=== PATIENT | male | born 1955 | race Caucasian/White ===

== ENCOUNTER 2019-04-15 16:18 | Inpatient (IN) | payer BC ==
[2019-04-15 16:36] LABS: ADD MAN DIFF? NO
[2019-04-15 16:49] LABS: WHITE BLOOD COUNT 4.1 10^3/ul (4.8-10.8)
[2019-04-15 16:49] LABS: EOSINOPHILS # 0.1 10^3/ul (0.0-0.5); HEMATOCRIT 28.2 % (42.0-52.0); HEMOGLOBIN 9.5 g/dl (14.0-18.0); LYMPHOCYTES # 0.8 10^3/ul (0.8-2.9); LYMPHOCYTES % 18.3 % (15.0-51.0); MEAN CORPUSCULAR HEMOGLOBIN 33.2 pg (29.0-33.0); MEAN CORPUSCULAR HGB CONC 33.7 g/dl (32.0-37.0); MEAN CORPUSCULAR VOLUME 98.6 fl (82.0-101.0); MEAN PLATELET VOLUME 8.6 fl (7.4-10.4); MONOCYTE # 0.4 10^3/ul (0.3-0.9); MONOCYTES % 10.7 % (0.0-11.0); NEUTROPHIL # 2.8 10^3/ul (1.6-7.5); PLATELET COUNT 203 10^3/UL (140-415); RED BLOOD COUNT 2.86 10^6/ul (4.70-6.10)
[2019-04-15 16:58] LABS: ALANINE AMINOTRANSFERASE 42 IU/L (13-69); ALBUMIN 4.3 g/dl (3.3-4.9); ALBUMIN/GLOBULIN RATIO 1.53; ALKALINE PHOSPHATASE 54 IU/L (42-121); ANION GAP 15 (5-13); ASPARTATE AMINO TRANSFERASE 91 IU/L (15-46); BILIRUBIN,INDIRECT 0.4 mg/dl (0-1.1); BILIRUBIN,TOTAL 0.4 mg/dl (0.2-1.3); BLOOD UREA NITROGEN 16 mg/dl (7-20); CALCIUM 9.5 mg/dl (8.4-10.2); CARBON DIOXIDE 27 mmol/L (21-31); CHLORIDE 88 mmol/L (97-110); CREATININE 1.71 mg/dl (0.61-1.24); Estimated GFR 41 mL/min (>60); GLUCOSE 168 mg/dl (70-220); LIPASE 132 U/L (23-300); POTASSIUM 3.6 mmol/L (3.5-5.1); SODIUM 130 mmol/L (135-144); TOTAL PROTEIN 7.1 g/dl (6.1-8.1)
[2019-04-15 17:09] LABS: TROPONIN-I < 0.012 ng/ml (0.000-0.120)
[2019-04-15] MEDS: SOD CHLORIDE 0.9% 1,000 ML IV (17:11)
[2019-04-15] MEDS: ASPIRIN 81 MG TAB PO (17:11)
[2019-04-15] MEDS: SOD CHLORIDE 0.45% 1,000 ML IV ×2 (18:27→21:45)
[2019-04-15] MEDS ORDERED: GLUCOSE GEL 15 GRAM TUBE PO ×2 (18:30)
[2019-04-15] MEDS ORDERED: ALBUTEROL/IPRATROPIUM (NEB) 3 ML AMP HHN (18:30)
[2019-04-15] MEDS ORDERED: DOCUSATE SODIUM 100 MG CAP PO (18:30)
[2019-04-15] MEDS ORDERED: GLUCAGON 1 MG INJ IM (18:30)
[2019-04-15] MEDS ORDERED: morphine 2 MG INJ IV ×2 (18:30→22:30)
[2019-04-15] MEDS ORDERED: HYDROCODONE/APAP (5/325) TAB PO (18:30)
[2019-04-15] MEDS ORDERED: DEXTROSE 50% 50 ML SYRINGE IV ×2 (18:30)
[2019-04-15] MEDS ORDERED: ACETAMINOPHEN 325 MG TAB PO (18:30)
[2019-04-15] MEDS ORDERED: NON-FORMULARY/PATIENT OWN MED (Cyanocobalamin (Vitamin B-12) (Vitamin B-12) 1,000 MCG) PO (18:30)
[2019-04-15] MEDS ORDERED: ONDANSETRON 4 MG INJ IV (18:30)
[2019-04-15] MEDS ORDERED: GLUCOSE GEL 15 GRAM TUBE BUCCAL (18:30)
[2019-04-15] MEDS ORDERED: NACL 0.9% 3 ML SYG IV (18:30)
[2019-04-15] MEDS ORDERED: MAGNESIUM HYDROXIDE 30ML CUP PO (18:30)
[2019-04-15] MEDS ORDERED: NITROGLYCERIN (SL) 0.4 MG TAB SL (18:30)
[2019-04-15] MEDS ORDERED: hydrALAzine 20 MG INJ IV (18:30)
[2019-04-15 19:28] LABS: CREATINE KINASE 95 IU/L (23-200)
[2019-04-15 19:31] LABS: ADD UMIC YES; UR ASCORBIC ACID 20 mg/dL (NEGATIVE); UR BILIRUBIN (Dip) NEGATIVE (NEGATIVE); UR BLOOD (Dip) 2+ mg/dL (NEGATIVE); UR CLARITY CLOUDY (CLEAR); UR COLOR AMBER (YELLOW); UR GLUCOSE (Dip) 1+ mg/dL (NEGATIVE); UR KETONES (Dip) 1+ mg/dL (NEGATIVE); UR LEUKOCYTE ESTERASE (Dip) 1+ Leu/ul (NEGATIVE); UR MUCUS MODERATE /HPF (NONE SEEN); UR NITRITE (Dip) NEGATIVE (NEGATIVE); UR RBC 147 /HPF (0-5); UR SPECIFIC GRAVITY (Dip) 1.024 (1.003-1.030); UR TOTAL PROTEIN (Dip) 1+ mg/dl (NEGATIVE); UR UROBILINOGEN (Dip) 1+ mg/dL (NEGATIVE); UR WBC 57 /HPF (0-5)
[2019-04-15 19:41] LABS: CK INDEX 1.7; CK-MB 1.64 ng/ml (0.0-2.4); TROPONIN-I < 0.012 ng/ml (0.000-0.120)
[2019-04-15 19:44] LABS: FREE T4 (FREE THYROXINE) 1.07 ng/dl (0.78-2.44)
[2019-04-15 19:56] LABS: ETHANOL < 10.0 mg/dl (0-0)
[2019-04-15] MEDS: LORAZEPAM 2 MG INJ IV (20:03)
[2019-04-15] MEDS: INSULIN ASPART [NOVOLOG] 3 ML PEN SC (21:00)
[2019-04-15] MEDS ORDERED: SIMVASTATIN 5 MG PO (21:00)
[2019-04-15] MEDS: TAMSULOSIN (SR) 0.4 MG CAP PO (21:42)
[2019-04-15] MEDS: ATORVASTATIN 10 MG TAB PO (21:42)
[2019-04-16] MEDS: INSULIN ASPART [NOVOLOG] 3 ML PEN SC ×6 (01:00→21:00)
[2019-04-16 01:06] LABS: CREATINE KINASE 78 IU/L (23-200)
[2019-04-16] MEDS: ACCU-CHEK XX (01:09)
[2019-04-16 01:20] LABS: CK INDEX 1.5; TROPONIN-I < 0.012 ng/ml (0.000-0.120)
[2019-04-16 02:40] LABS: ADD UMIC YES; UR ASCORBIC ACID NEGATIVE (NEGATIVE); UR BILIRUBIN (Dip) NEGATIVE (NEGATIVE); UR BLOOD (Dip) 3+ mg/dL (NEGATIVE); UR CLARITY SLIGHTLY CLOUDY (CLEAR); UR COLOR YELLOW (YELLOW); UR GLUCOSE (Dip) 1+ mg/dL (NEGATIVE); UR KETONES (Dip) TRACE mg/dL (NEGATIVE); UR LEUKOCYTE ESTERASE (Dip) NEGATIVE Leu/ul (NEGATIVE); UR MUCUS FEW /HPF (NONE SEEN); UR NITRITE (Dip) NEGATIVE (NEGATIVE); UR RBC 53 /HPF (0-5); UR SPECIFIC GRAVITY (Dip) 1.012 (1.003-1.030); UR TOTAL PROTEIN (Dip) NEGATIVE (NEGATIVE); UR UROBILINOGEN (Dip) NEGATIVE (NEGATIVE); UR WBC 5 /HPF (0-5)
[2019-04-16] MEDS: PANTOPRAZOLE (EC) 40 MG TAB PO (05:26)
[2019-04-16 06:19] LABS: ADD MAN DIFF? NO
[2019-04-16 06:35] LABS: WHITE BLOOD COUNT 2.7 10^3/ul (4.8-10.8)
[2019-04-16 06:35] LABS: BASOPHILS % 1.5 % (0.0-2.0); EOSINOPHILS # 0.2 10^3/ul (0.0-0.5); EOSINOPHILS % 7.9 % (0.0-7.0); HEMATOCRIT 23.8 % (42.0-52.0); LYMPHOCYTES # 0.6 10^3/ul (0.8-2.9); LYMPHOCYTES % 22.6 % (15.0-51.0); MEAN CORPUSCULAR HEMOGLOBIN 32.8 pg (29.0-33.0); MEAN CORPUSCULAR HGB CONC 33.6 g/dl (32.0-37.0); MEAN CORPUSCULAR VOLUME 97.5 fl (82.0-101.0); MEAN PLATELET VOLUME 8.6 fl (7.4-10.4); MONOCYTE # 0.4 10^3/ul (0.3-0.9); MONOCYTES % 14.3 % (0.0-11.0); NEUTROPHIL # 1.4 10^3/ul (1.6-7.5); NEUTROPHILS % 52.9 % (39.0-77.0); PLATELET COUNT 163 10^3/UL (140-415); RED BLOOD COUNT 2.44 10^6/ul (4.70-6.10); RED CELL DISTRIBUTION WIDTH 12.9 % (11.5-14.5)
[2019-04-16 06:42] LABS: HEMOGLOBIN A1C 5.6 % (0-5.9)
[2019-04-16 06:56] LABS: CHOLESTEROL 114 mg/dl (100-200)
[2019-04-16 06:56] LABS: CHOL/HDL RATIO 1.6 RATIO; HDL CHOLESTEROL 70 mg/dl (30-78); LDL CHOLESTEROL,CALCULATED 29 mg/dl; TRIGLYCERIDES 74 mg/dl (0-149)
[2019-04-16 07:00] LABS: ANION GAP 7 (5-13); BLOOD UREA NITROGEN 14 mg/dl (7-20); CALCIUM 8.6 mg/dl (8.4-10.2); CARBON DIOXIDE 30 mmol/L (21-31); CHLORIDE 93 mmol/L (97-110); Estimated GFR > 60 mL/min (>60); GLUCOSE 114 mg/dl (70-220); PHOSPHORUS 2.6 mg/dl (2.5-4.9); POTASSIUM 3.5 mmol/L (3.5-5.1); SODIUM 130 mmol/L (135-144)
[2019-04-16 08:29] LABS: MAGNESIUM 0.8 mg/dl (1.7-2.5)
[2019-04-16] MEDS ORDERED: [UNRECOGNIZED DRUG - OTHER] PO (09:00)
[2019-04-16] MEDS ORDERED: CLOPIDOGREL 75 MG TAB PO (09:00)
[2019-04-16] MEDS ORDERED: FOLIC ACID PO (09:00)
[2019-04-16] MEDS ORDERED: MV FE OTHER MIN PO (09:00)
[2019-04-16] MEDS: FERROUS SULFATE (EC) 325 MG TAB PO (09:02)
[2019-04-16] MEDS: FINASTERIDE 5 MG TAB PO (09:02)
[2019-04-16] MEDS: MULTIVITAMINS/MINERALS TAB PO (09:02)
[2019-04-16] MEDS: MAGNESIUM SULFATE 4 GM/100 ML 100 ML IVPB (10:10)
[2019-04-16] MEDS: LORAZEPAM 2 MG INJ IV ×2 (11:34→16:49)
[2019-04-16 11:55] LABS: IRON 64 ug/dl (35-150)
[2019-04-16 12:05] LABS: % IRON SATURATION 26 % SAT (22-52); TOTAL IRON BINDING CAPACITY 250 ug/dl (241-421)
[2019-04-16 14:01] LABS: PARATHYROID HORMONE 20.8 pg/ml (24.0-73.0)
[2019-04-16 14:39] LABS: SODIUM,URINE RANDOM 66 mmol/L (30-90)
[2019-04-16 14:42] LABS: CREATININE,URINE RANDOM 35.02 mg/dl (20-370); PROTEIN/CREAT RATIO 0.42 RATIO
[2019-04-16] MEDS: SOD CHLORIDE 0.45% 1,000 ML IV (15:31)
[2019-04-16 15:53] LABS: OSMOLALITY 275 mOsm/kg (280-295)
[2019-04-16 16:15] LABS: OSMOLALITY,URINE 249 mOsm/kg (250-1200)
[2019-04-16] MEDS: ATORVASTATIN 10 MG TAB PO (21:04)
[2019-04-17] MEDS: ACCU-CHEK XX (02:00)
[2019-04-17 06:18] LABS: PROTEIN, TOTAL 5.7 g/dL (6.1-8.1)
[2019-04-17 06:43] LABS: ADD MAN DIFF? NO
[2019-04-17] MEDS: PANTOPRAZOLE (EC) 40 MG TAB PO (06:45)
[2019-04-17 06:55] LABS: BASOPHIL # 0.1 10^3/ul (0.0-0.1); BASOPHILS % 1.5 % (0.0-2.0); EOSINOPHILS # 0.2 10^3/ul (0.0-0.5); EOSINOPHILS % 6.2 % (0.0-7.0); HEMATOCRIT 29.6 % (42.0-52.0); HEMOGLOBIN 9.7 g/dl (14.0-18.0); LYMPHOCYTES # 0.8 10^3/ul (0.8-2.9); LYMPHOCYTES % 23.2 % (15.0-51.0); MEAN CORPUSCULAR HEMOGLOBIN 32.9 pg (29.0-33.0); MEAN CORPUSCULAR HGB CONC 32.8 g/dl (32.0-37.0); MEAN CORPUSCULAR VOLUME 100.3 fl (82.0-101.0); MEAN PLATELET VOLUME 8.6 fl (7.4-10.4); MONOCYTE # 0.4 10^3/ul (0.3-0.9); MONOCYTES % 10.9 % (0.0-11.0); NEUTROPHILS % 57.6 % (39.0-77.0); PLATELET COUNT 189 10^3/UL (140-415); RED BLOOD COUNT 2.95 10^6/ul (4.70-6.10); RED CELL DISTRIBUTION WIDTH 13.2 % (11.5-14.5)
[2019-04-17 06:55] LABS: WHITE BLOOD COUNT 3.4 10^3/ul (4.8-10.8)
[2019-04-17 07:10] LABS: ANION GAP 10 (5-13); BLOOD UREA NITROGEN 8 mg/dl (7-20); CALCIUM 9.2 mg/dl (8.4-10.2); CARBON DIOXIDE 32 mmol/L (21-31); CHLORIDE 94 mmol/L (97-110); CREATININE 1.07 mg/dl (0.61-1.24); Estimated GFR > 60 mL/min (>60); GLUCOSE 129 mg/dl (70-220); POTASSIUM 3.8 mmol/L (3.5-5.1); SODIUM 136 mmol/L (135-144)
[2019-04-17 07:16] LABS: C-REACTIVE PROTEIN 1.5 mg/dl (0.0-0.9)
[2019-04-17] MEDS: FERROUS SULFATE (EC) 325 MG TAB PO (08:26)
[2019-04-17] MEDS: MULTIVITAMINS/MINERALS TAB PO (08:26)
[2019-04-17] MEDS: FINASTERIDE 5 MG TAB PO (08:26)
[2019-04-17] MEDS: CYANOCOBALAMIN 500 MCG TAB PO (08:40)
[2019-04-17 08:42] LABS: FOLATE > 20.0 ng/ml (2.8-20.0)
[2019-04-17] MEDS: INSULIN ASPART [NOVOLOG] 3 ML PEN SC ×2 (08:48→12:42)
[2019-04-17 08:53] LABS: ERYTHROCYTE SEDIMENTATION RATE 55 mm/Hr (0-20)
[2019-04-17] MEDS: CEFTRIAXONE 1 GM/50 ML (PMX) 50 ML IVPB (12:29)
[2019-04-17 15:02] LABS: OCCULT BLOOD STOOL NEGATIVE (NEGATIVE)
[2019-04-17 23:48] LABS: ALBUMIN 3.3 g/dL (3.8-4.8); ALPHA-1-GLOBULINS 0.4 g/dL (0.2-0.3); ALPHA-2-GLOBULINS 0.8 g/dL (0.5-0.9); BETA 2 GLOBULINS 0.3 g/dL (0.2-0.5); BETA GLOBULINS 0.4 g/dL (0.4-0.6); GAMMA GLOBULINS 0.6 g/dL (0.8-1.7)
== END 2019-04-17 14:58 | disposition home health service (06) | DRG 641 ==
LOC: E/R 16:18 → 6WM 17:27
DX: E86.0 Dehydration (principal); N17.9 Acute kidney failure, unspecified; N39.0 Urinary tract infection, site not specified; F10.988 Alcohol use, unspecified with other alcohol-induced disorder; E87.1 Hypo-osmolality and hyponatremia; D64.9 Anemia, unspecified; E83.42 Hypomagnesemia; E11.9 Type 2 diabetes mellitus without complications; E78.5 Hyperlipidemia, unspecified; I10 Essential (primary) hypertension; N40.0 Benign prostatic hyperplasia without lower urinary tract symptoms; R31.9 Hematuria, unspecified; Z86.718 Personal history of other venous thrombosis and embolism; Z79.01 Long term (current) use of anticoagulants; Z79.02 Long term (current) use of antithrombotics/antiplatelets; Z79.84 Long term (current) use of oral hypoglycemic drugs
CPT/HCPCS: 70450; 70551; 71045; 72141; 76775; 80048; 80053; 80061; 80307; 81001; 81003; 82270; 82550; 82553; 82570; 82607; 82728; 82746; 82962; 83036; 83540; 83690; 83735; 83930; 83935; 83970; 84100; 84155; 84165; 84300; 84439; 84443; 84484; 85025; 85651; 86140; 87086; 92610; 93005; 93306; 93880; 97116; 97161; 97167; 99285-25